=== PATIENT | male | born 1980 | race Caucasian/White ===

== ENCOUNTER 2020-06-25 12:46 | Inpatient (IN) | payer MEDICAID ==
[2020-06-25] VITALS (17 sets, daily range): BP systolic 68–115; BP diastolic 25–73
[~2020-06-25] VITALS: Ht 180.3 cm; Wt 45.2 kg
--- NOTE | ~2020-06-25 | OP ---
PATIENT NAME: LACIE ESTRADA MEDICAL RECORD: [id number] :82 LOCATION:.[facility] D.2311 ADMISSION DATE:06/25/20 SURGEON: JEFF RODRIGUEZ MD DATE OF OPERATION: 06/26/2020 PREOPERATIVE DIAGNOSES: 1. Acute abdomen with sepsis. 2. Septic shock. 3. Diabetic ketoacidosis. POSTOPERATIVE DIAGNOSES: 1. Acute abdomen with sepsis. 2. Septic shock. 3. Diabetic ketoacidosis. PROCEDURE: 1. Exploratory laparotomy. 2. Small bowel resection. SURGEON: Jeff Rodriguez MD REPORT OF PROCEDURE: The patient's abdomen was prepped and draped in sterile fashion. Midline incision was performed and we entered the abdominal cavity. Once in the abdomen, we were able to inspect the patient's small bowel. There was noted to be necrosis of the small bowel in its middle segment. This was about 2 feet in length. As we pulled up the remainder of the small bowel, we did not see any evidence of any further necrotic tissue and this all appeared to be viable and only mildly distended. We made windows in the mesentery and transected the small bowel proximally and distally on normal-appearing tissue. There was noted to be blood flow at these areas where the stapler was fired. We then came through the mesentery with sequential clamp and tie technique with 3-0 silk ties and we eventually sent this section of small bowel off for permanent specimen. A [id number] anastomosis was performed with a 55 blue load LEANNA stapler. We then closed the enterotomies with 30 blue load TA stapler. I oversewed all the staple lines with Lemberted 3-0 silks. The small bowel was placed back into the abdominal cavity. We then inspected the remainder of the abdomen and could see that the colon was normal with no signs of perforation or gangrene. The stomach appeared normal with no perforation or gangrene. There was proteinaceous fluid and ascitic fluid in the abdomen, but no sign of any purulent material or feculent material. We irrigated out the abdomen thoroughly with normal saline. The NG tube was noted to be in good position. The liver was normal with no signs of cirrhotic changes. At this point, we closed the fascia in the midline with a running #1 loop PDS times 2 and then closed the skin with shankar. COMPLICATIONS: None. CONDITION: Critical. ANESTHESIA: General endotracheal. BLOOD LOSS: Minimal. TRANSINT:[id number] Voice Confirmation ID: [id number] DOCUMENT ID: [id number] OPERATIVE REPORT [id number] LACIE ESTRADA CHRISTIAN MD CC: [id number] DICTATION DATE: 06/26/20 1231 SENIOR FORMULATION SCIENTIST: 06/26/202046 ADM IN [facility] [address] [place] [address]
--- NOTE | ~2020-06-25 | EEG ---
PATIENT:LACIE ESTRADA MEDICAL RECORD: [id number] DATE OF : 82 LOCATION:D.231 D.ICU ADMISSION DATE: 06/25/20 REFERRING PHYSICIAN: INTERPRETING PHYSICIAN: HIEU LAZAR MD DATE OF SERVICE: 07/03/2020 DATE OF EE07/03/2020 Room number is 2311 ORDERING PHYSICIAN: Dr. Lazar. CASE HISTORY: A 40-year-old male admitted after overdose with core temperature of 80 with respiratory failure, intubated, not assisting vent and unresponsive off sedation. PROCEDURE: EEG done with the patient off sedation using the standard 10-20 international electrode system, 16 channel was used with 17th as EKG. Photic stimulation done as activation procedure. DESCRIPTION OF PROCEDURE: EEG opens with the patient unresponsive on vent with record displaying diffuse background slowing in the theta and delta range with depressed amplitudes diffusely. Best brief background organization is in the 5-6 Hz range with most of record characterized by slower theta and delta slowing diffusely symmetrically. No epileptiform changes were seen. Photic stimulation did not yield a photoparoxysmal response. IMPRESSION: Markedly abnormal EEG with diffuse background slowing consistent with encephalopathy, consistent with diagnosis of anoxic brain injury. PROGNOSIS: Grim for recovery. TRANSINT:[id number] Voice Confirmation ID: [id number] DOCUMENT ID: [id number] HIEU LAZAR MD CC: [id number] DICTATION DATE: 07/03/20858 RECRUITMENT COORDINATOR: 07/03/20 09 ADM IN [facility] [address] [place] [address]
--- NOTE | 2020-06-25 14:12 | NUR ---
URINE COLLECTED AND SENT TO LAB VIA TUBE SYSTEM.
[2020-06-25 14:16] LABS: BILIRUBIN NEGATIVE (NEGATIVE); GLUCOSE 1000 mg/dL (NEGATIVE); KETONE MODERATE mg/dL (NEGATIVE); NITRITE NEGATIVE (NEGATIVE); UROBILINOGEN NORMAL (NORMAL)
[2020-06-25 14:17] LABS: AMORPHOUS SEDIMENT >1+ /lpf (NONE SEEN); BACTERIA FEW /hpf (NEGATIVE); RED CELLS - URINE 0-5 /hpf (0-5); WHITE CELLS - URINE 0-5 /hpf (NEGATIVE)
[2020-06-25 14:18] LABS: UDS - AMPHET NEGATIVE QUAL (NEGATIVE); UDS - BARB NEGATIVE QUAL (NEGATIVE); UDS - BENZO NEGATIVE QUAL (NEGATIVE); UDS - COCAINE NEGATIVE QUAL (NEGATIVE); UDS - OPIATE NEGATIVE QUAL (NEGATIVE); UDS - PCP NEGATIVE QUAL (NEGATIVE); UDS - THC NEGATIVE QUAL (NEGATIVE)
[2020-06-25 14:21] LABS: BASOPHILS 0.1 % (0-2); EOSINOPHILS 0.1 % (0-7); HEMATOCRIT 38.4 % (42.0-54.0); HEMOGLOBIN 11.6 g/dL (13.5-17.5); IMMATURE GRANULOCYTES 0.9 % (0-5); LYMPHOCYTES 10.8 % (15-50); MCH 30.2 pg (26.0-34.0); MCHC 30.2 g/dL (31.0-37.0); MEAN PLATELET VOLUME 10.3 fL (7.4-10.4); MONOCYTES 0.6 % (2-11); NEUTROPHILS 87.5 % (40-80); RBC 3.84 10x6/uL (4.20-6.10); WBC 19.4 10x3/uL (4.8-10.8)
[2020-06-25 14:23] LABS: PLATELET COUNT 260 10x3/uL (130-400)
[2020-06-25 14:45] LABS: ACETAMINOPHEN 4.7 ug/mL (10.0-30.0); ALBUMIN 2.5 g/dL (3.4-5.0); ALKALINE PHOSPHATASE 141 U/L (30-120); ALT (SGPT) 33 U/L (10-68); BILIRUBIN - TOTAL 0.51 mg/dL (0.2-1.3); CHLORIDE - SERUM 91 mmol/L (98-107); CKMB 1.2 U/L (0.0-3.6); CREATININE - SERUM 3.6 mg/dL (0.6-1.3); POTASSIUM - SERUM 4.3 mmol/L (3.5-5.1); PROTEIN - SERUM 5.1 g/dL (6.4-8.2); SODIUM 133 mmol/L (136-145); TROPONIN-I < 0.017 ng/mL (0.000-0.060); UREA NITROGEN 47 mg/dL (7-18); eGFR NON AFRICAN AMERICAN 20 mL/min (90-120)
[2020-06-25 14:59] LABS: CALC OSMOLALITY 357 mosm/kg (275-300); CREATINE KINASE 112 UL (21-232)
--- NOTE | 2020-06-25 15:01 | NUR ---
PER DR DOWNEN START INSULIN DRIP AT 10ML/HR INSTEAD OF USING FORMULA ON FLOWSHEET. AND RECHECK SUGAR HOURLY.
[2020-06-25 15:05] LABS: CALCIUM 6.9 mg/dL (8.5-10.1); GLUCOSE 1546 mg/dL (74-106)
[2020-06-25 15:06] LABS: CARBON DIOXIDE 6.9 mmol/L (21.0-32.0)
--- NOTE | 2020-06-25 15:40 | NUR ---
PER DR. ESPINAL, DO NOT CALL CODE SEPSIS.
--- NOTE | 2020-06-25 16:00 | NUR ---
CALLED LAB TO NOTIFY THEM OF STAT GLUCOSE DRAW.
--- NOTE | 2020-06-25 16:01 | NUR ---
FINGERSTICK GLUCOSE READING "HI" STAT ORDER PLACED FOR LAB GLUCOSE.
[2020-06-25 17:16] LABS: CALCIUM 7.4 mg/dL (8.5-10.1); CREATININE - SERUM 3.2 mg/dL (0.6-1.3); MAGNESIUM - SERUM 3.1 mg/dL (1.8-2.4)
[2020-06-25 17:17] LABS: ANION GAP 33.2 mmol/L (8-16); POTASSIUM - SERUM 3.2 mmol/L (3.5-5.1)
--- NOTE | 2020-06-25 18:52 | NUR ---
PER RIK DE LA FUENTE APN, INCREASE INSULIN DRIP TO 15U/HR FOR THE BS OF 1069.
--- NOTE | 2020-06-25 19:30 | NUR ---
BS: READING HIGH, ROSS Cardenas APN PAGED ABOUT KCL 2.9 AND BS FROM LAB OF 853, [place] NOTED.
[2020-06-25 19:34] LABS: CALCIUM 7.5 mg/dL (8.5-10.1); CREATININE - SERUM 3.2 mg/dL (0.6-1.3)
[2020-06-25 19:40] LABS: ANION GAP 25.4 mmol/L (8-16); CARBON DIOXIDE 19.5 mmol/L (21.0-32.0); POTASSIUM - SERUM 2.9 mmol/L (3.5-5.1)
--- NOTE | 2020-06-25 21:40 | NUR ---
ROSS Cardenas AT THE BEDSIDE INFORMED ABOUT PATIENTS HEART RATE OF 150 AND RESP RATE OF 37.
--- NOTE | 2020-06-25 22:30 | NUR ---
DR. MEHTA INFORMED ABOUT PATIENT DECLINE IN HEALTH AND ASKED TO EXAM THE PATIENT AND INFORMED OF ELEVATED HEART RATE OF 150 AND RESP RATE 40, ABG, NS BOLUS AND LEVOPHED ORDERED.
[2020-06-25 23:33] LABS: ANION GAP 21.6 mmol/L (8-16); CALCIUM 7.7 mg/dL (8.5-10.1); CARBON DIOXIDE 21.1 mmol/L (21.0-32.0); CREATININE - SERUM 3.5 mg/dL (0.6-1.3)
[2020-06-25 23:35] LABS: POTASSIUM - SERUM 2.7 mmol/L (3.5-5.1)
[2020-06-26] VITALS (34 sets, daily range): BP systolic 64–138; BP diastolic 32–86; BMI 13.9
--- NOTE | 2020-06-26 02:30 | NUR ---
ROSS Cardenas AT THE BEDSIDE BLADDER SCANNER COMPLETE NO URINE NOTED, CT OF HEAD AND ABD ORDERED, VASOPRESSIN ORDERED DUE TO CONT HYPOTENSION.
[2020-06-26 02:48] LABS: CALCIUM 7.8 mg/dL (8.5-10.1); CARBON DIOXIDE 21.1 mmol/L (21.0-32.0); CREATININE - SERUM 3.5 mg/dL (0.6-1.3)
[2020-06-26 02:50] LABS: ANION GAP 21.6 mmol/L (8-16); POTASSIUM - SERUM 3.7 mmol/L (3.5-5.1)
--- NOTE | 2020-06-26 04:30 | NUR ---
OLD STEEL REMOVED AND NEW ONE PLACED, PER MD REQUEST, NO URINE OUTPUT NOTED AT THIS TIME.
--- NOTE | 2020-06-26 07:30 | NUR ---
RECEIVED PT INTO CARE AT THIS TIME. UNABLE TO GET BP AT THIS TIME. HEARTRATE IS 155, PT WORKING HARD TO BREATH. VASOPRESSIN RUNNING AT 0.04U/MIN. NOREPINEPHRINE RUNNING AT 10 MCG/MIN AT THIS TIME. PAGE OUT TO DR. BERGER WHOM IS ACCOUNTS PAYABLE SUPERVISOR FOR OVIDIO.
--- NOTE | 2020-06-26 07:40 | NUR ---
UPDATED DR BERGER OF EUGENIA ORDERS AND VITALS OF BP 64/42, HR 155, RESP RATE OF 42. MOST RECENT LABS COMMUNICATED TO DR BERGER. THIS NURSE COMMUNICATES CONCERN OF PT CONDITION AT THIS TIME. NEW ORDERS RECEIVED 1/2NS 500ML BOLUS, THEN START 1/2 NS @150CC/HR AND REDRAW ABG'S. DR BERGER STATES HE WILL BE IN SOON TO SEE PT.
--- NOTE | 2020-06-26 08:00 | NUR ---
BLADDER SCANNER SHOWS NO URINE IN BLADDER AT THIS TIME.
--- NOTE | 2020-06-26 08:31 | NUR ---
DR RODRIGUEZ AT BEDSIDE TO EVAL PT. STATES HE WILL BE TAKING PT TO SURGERY SOMETIME SOON.
--- NOTE | 2020-06-26 09:00 | NUR ---
DR BERGER IN ED AT THIS TIME TO SEE PT.
--- NOTE | 2020-06-26 09:15 | NUR ---
ATTEMPTING TO LOCATE FAMILY TO NOTIFY REGARDING PATIENTS CONDITION. [facility]TA[facility]ED [facility] PATIENT WAS PICKED UP, GIVEN THE NAME OF HENRRY FREED AT [phone]. SHE IS A "FRIEND" AND SHE WILL ATTEMPT TO GET AHOLD OF FAMILY, HOWEVER DENIES KNOWING ANY FAMILY.
--- NOTE | 2020-06-26 09:40 | NUR ---
ANESTHESIA AT BEDSIDE TO INTUBATE AT THIS TIME.
--- NOTE | 2020-06-26 10:27 | NUR ---
SURGERY TOOK PATIENT TO OR AT THIS TIME.
--- NOTE | 2020-06-26 10:49 | NUR ---
Located some family, will contact patients father Marquez Cox at [phone]. Unable to reach Marquez. Will try again later
--- NOTE | 2020-06-26 10:53 | NUR ---
Reached patients uncle, Tiburcio Cox and he states he will reach immediate family and notify them to call hospital.
--- NOTE | 2020-06-26 11:37 | NUR ---
SPOKE WITH ADDY ESTRADA, SHE STATES SHE WILL CONTACT HER AND THEY WILL GET HERE [facility]. I EXPLAINED HE IS IN CRITICAL CONDITION AND THEY NEED TO COME TO HOSPITAL. SHE STATED HIS ONLY MEDICAL PROBLEMS HE HAS IS DM AND DRUG ABUSE HER PHONE NUMBER IS [phone]
--- NOTE | 2020-06-26 12:09 | NUR ---
SPOKE WITH PATIENTS MOTHER, NEMO DE LA VEGA AND SHE WAS INFORMED OF PATIENTS CONDITION. HER NUBER IS [phone]
[2020-06-26 15:28] LABS: BASOPHILS 0 % (0-2); EOSINOPHILS 0.3 % (0-7); HEMATOCRIT 33.3 % (42.0-54.0); HEMOGLOBIN 11.1 g/dL (13.5-17.5); IMMATURE GRANULOCYTES 1.4 % (0-5); MCHC 33.3 g/dL (31.0-37.0); MEAN PLATELET VOLUME 9.7 fL (7.4-10.4); MONOCYTES 3.1 % (2-11); NEUTROPHILS 79.2 % (40-80); RBC 3.58 10x6/uL (4.20-6.10); RDW 14.6 % (11.5-14.5)
[2020-06-26 15:34] LABS: PLATELET COUNT 155 10x3/uL (130-400)
[2020-06-26 15:35] LABS: WBC 6.5 10x3/uL (4.8-10.8)
[2020-06-26 16:05] LABS: CARBON DIOXIDE 21.8 mmol/L (21.0-32.0); CHLORIDE - SERUM 115 mmol/L (98-107); CHOL - HDL RATIO 0.9 ratio (2.3-4.9); CHOLESTEROL, TOTAL 52 mg/dL (0-200); CREATININE - SERUM 3.6 mg/dL (0.6-1.3); HDL CHOLESTEROL 59 mg/dL (32-96); PHOSPHOROUS 2.2 mg/dL (2.5-4.9); SODIUM 149 mmol/L (136-145); THYROID STIMULATING HORMONE 0.52 uIU/mL (0.36-3.74); TRIGLYCERIDE 42 mg/dL (30-200); eGFR NON AFRICAN AMERICAN 20 mL/min (90-120)
[2020-06-26 16:09] LABS: CALC OSMOLALITY 329 mosm/kg (275-300); GLUCOSE 386 mg/dL (74-106); MAGNESIUM - SERUM 1.4 mg/dL (1.8-2.4); POTASSIUM - SERUM 4.7 mmol/L (3.5-5.1); UREA NITROGEN 64 mg/dL (7-18)
[2020-06-26 16:10] LABS: C-REACTIVE PROTEIN 32.2 mg/dL (0.0-0.9); CALCIUM 5.9 mg/dL (8.5-10.1)
--- NOTE | 2020-06-26 17:26 | NUR ---
DR LYNCH ON UNIT. NEW ORDER RECEVED FOR VERSED JEFF.
--- NOTE | 2020-06-26 19:15 | NUR ---
REPORT RECEIVED. ASSESSMENT COMPLETE PER FLOW SHEET. REFER FOR FINDINGS. WILL CONTINUE TO MONITOR
[2020-06-26 19:16] LABS: ANION GAP 20.2 mmol/L (8-16); CARBON DIOXIDE 19.1 mmol/L (21.0-32.0); CREATININE - SERUM 4.1 mg/dL (0.6-1.3)
[2020-06-26 19:18] LABS: POTASSIUM - SERUM 4.3 mmol/L (3.5-5.1)
[2020-06-26 22:45] LABS: CARBON DIOXIDE 18.4 mmol/L (21.0-32.0); CREATININE - SERUM 4.1 mg/dL (0.6-1.3)
[2020-06-26 22:46] LABS: CALCIUM 5.8 mg/dL (8.5-10.1); POTASSIUM - SERUM 4.4 mmol/L (3.5-5.1)
[2020-06-27] VITALS (94 sets, daily range): BP systolic 75–129; BP diastolic 24–93
[2020-06-27 03:26] LABS: BASOPHILS 0.1 % (0-2); EOSINOPHILS 0.1 % (0-7); HEMATOCRIT 39.1 % (42.0-54.0); HEMOGLOBIN 12.7 g/dL (13.5-17.5); IMMATURE GRANULOCYTES 10.6 % (0-5); LYMPHOCYTES 11.1 % (15-50); MCH 30.2 pg (26.0-34.0); MCHC 32.5 g/dL (31.0-37.0); MCV 92.9 fL (80.0-100.0); MEAN PLATELET VOLUME 10.5 fL (7.4-10.4); MONOCYTES 0.4 % (2-11); NEUTROPHILS 77.7 % (40-80); PLATELET COUNT 114 10x3/uL (130-400); RBC 4.21 10x6/uL (4.20-6.10); RDW 14.2 % (11.5-14.5); WBC 18.3 10x3/uL (4.8-10.8)
[2020-06-27 03:37] LABS: MAGNESIUM - SERUM 1.4 mg/dL (1.8-2.4); PHOSPHOROUS 2.8 mg/dL (2.5-4.9)
[2020-06-27 03:38] LABS: ANION GAP 13.1 mmol/L (8-16)
[2020-06-27 03:39] LABS: CALCIUM 5.9 mg/dL (8.5-10.1); POTASSIUM - SERUM 5.1 mmol/L (3.5-5.1)
--- NOTE | 2020-06-27 08:12 | NUR ---
070 REPORT RECIEVED AND CARE ASSUMED OF PATIENT SEE LOW SHEET FOR SHIFT ASSESMENT FINDINGS..
[2020-06-27 09:12] LABS: HEPATITIS C ANTIBODY <0.1 (0.0-0.9)
[2020-06-27 11:00] LABS: CREATINE KINASE 13678 UL (21-232)
--- NOTE | 2020-06-27 17:34 | NUR ---
1730 BS DONE AT THIS TIME.. RESULT 23 D50W GIVEN..
--- NOTE | 2020-06-27 17:56 | NUR ---
1755 LAB HERE AND BLOOD DRAWN FROM [facility] FOR BLOOD CULTURES URINE OBTAINED FOR URINE CULTURE.. BS REPEATED 30 IN AFTER D50W GIVEN AND RESULTS ARE 146...
--- NOTE | 2020-06-27 20:27 | NUR ---
ANNE ANGULO PTS AUNT CALLED GAVE PASSSCODE UPDATE GIVEN. PT STATED SHE WOULD TRY TO GET PTS DAD'S CONTACT INFORMATION. INFORMED PT WAS CRITICAL. QUESTIONS ANSWERED
--- NOTE | 2020-06-27 20:45 | NUR ---
PTS AUNT RETURNED CALL GAVE PASSCODE AND GAVE PTS FATHERS PHONE NUMBER
[2020-06-28] VITALS (84 sets, daily range): BP systolic 91–149; BP diastolic 51–95
[2020-06-28 06:07] LABS: ANION GAP 18.7 mmol/L (8-16); CARBON DIOXIDE 18.9 mmol/L (21.0-32.0); MAGNESIUM - SERUM 1.6 mg/dL (1.8-2.4)
[2020-06-28 06:10] LABS: CREATININE - SERUM 5.4 mg/dL (0.6-1.3); PHOSPHOROUS 4.6 mg/dL (2.5-4.9)
[2020-06-28 06:11] LABS: CALCIUM 5.3 mg/dL (8.5-10.1); POTASSIUM - SERUM 5.6 mmol/L (3.5-5.1)
[2020-06-28 06:15] LABS: HEMOGLOBIN 8.7 g/dL (13.5-17.5); MCH 29.3 pg (26.0-34.0); MCHC 31.1 g/dL (31.0-37.0); MCV 94.3 fL (80.0-100.0); MEAN PLATELET VOLUME 10.9 fL (7.4-10.4); PLATELET COUNT 55 10x3/uL (130-400); RBC 2.97 10x6/uL (4.20-6.10); RDW 14.4 % (11.5-14.5); WBC 15.3 10x3/uL (4.8-10.8)
[2020-06-28 06:45] LABS: LYMPHOCYTES 20 % (15-50); MONOCYTES 1 % (2-11); NEUTROPHILS 75 % (40-80); PLATELET ESTIMATE DECREASED; POIKILOCYTOSIS OCC
[2020-06-28 06:46] LABS: BURR CELLS OCC
--- NOTE | 2020-06-28 09:44 | NUR ---
0700 REPORT RECIEVED AND CARE ASSUMED OF PATIENT.. SEE FLOW SHEET FOR FOR SHIFT ASSEMENT FINDINGS 0945LEANNE RENAL IN TO SEE PATIENT.
--- NOTE | 2020-06-28 10:43 | NUR ---
0947 DR BERGER IN TO SEE PATIENT
--- NOTE | 2020-06-28 15:58 | NUR ---
1600 EMERY DRIP AND LEVOPHED HAVE BOTH BEEN WEANED OFF OF PATIENT THRU OUT THE AFTERNOON.. BP REMAINS 100 SYSTOLIC .. VASOPRESSIN CONTINUES AT 0.04 ...
--- NOTE | 2020-06-28 19:10 | NUR ---
WHILE DAYSHIFT AND COMMUNICATION CLERK NURSE DOING BEDSIDE REPORT. PT RESP RATE INCREASED SHALLOW FENTANYL INCREASED WILL MONITOR
[2020-06-29] VITALS (60 sets, daily range): BP systolic 88–129; BP diastolic 62–95
--- NOTE | 2020-06-29 05:20 | NUR ---
LATE ENTRY: INSULIN GTT STOPPED AT 2014 POTASSIUM GTT STOPPED AT 199
[2020-06-29 08:02] LABS: ALBUMIN 1.4 g/dL (3.4-5.0); ALKALINE PHOSPHATASE 255 U/L (30-120); ALT (SGPT) 174 U/L (10-68); BILIRUBIN - DIRECT 1.15 mg/dL (0.00-0.30); BILIRUBIN - INDIRECT 0.48 mg/dL (0.00-1.00); BILIRUBIN - TOTAL 1.63 mg/dL (0.2-1.3); CARBON DIOXIDE 17.5 mmol/L (21.0-32.0); CHLORIDE - SERUM 101 mmol/L (98-107); CREATININE - SERUM 6.6 mg/dL (0.6-1.3); PROTEIN - SERUM 4.9 g/dL (6.4-8.2); SODIUM 130 mmol/L (136-145); eGFR NON AFRICAN AMERICAN 10 mL/min (90-120)
[2020-06-29 08:19] LABS: HEMATOCRIT 20.1 % (42.0-54.0); MCH 30.1 pg (26.0-34.0); MCHC 32.3 g/dL (31.0-37.0); MCV 93.1 fL (80.0-100.0); RDW 14.3 % (11.5-14.5)
[2020-06-29 08:23] LABS: WBC 11.1 10x3/uL (4.8-10.8)
[2020-06-29 08:24] LABS: HEMOGLOBIN 6.5 g/dL (13.5-17.5); RBC 2.16 10x6/uL (4.20-6.10)
[2020-06-29 08:25] LABS: PLATELET COUNT 41 10x3/uL (130-400)
[2020-06-29 08:40] LABS: CALC OSMOLALITY 301 mosm/kg (275-300); GLUCOSE 154 mg/dL (74-106)
[2020-06-29 08:41] LABS: CALCIUM 5.8 mg/dL (8.5-10.1); POTASSIUM - SERUM 6.9 mmol/L (3.5-5.1); UREA NITROGEN 120 mg/dL (7-18)
[2020-06-29 09:08] LABS: CKMB 220.4 U/L (0.0-3.6); CREATINE KINASE 55320 UL (21-232)
--- NOTE | 2020-06-29 12:31 | NUR ---
INCREASED RR TO 20
--- NOTE | 2020-06-29 12:57 | NUR ---
Nutrition follow-up: Intubated; NPO Labs reviewed Pt very unstable at this time RDN received order for TPN; however, pt too unstable with elevated LFT's to start TPN at this time. Pro RN spoke with Dr. Dale who agreed. Wt: 99# Will continue to monitor pts progress; will start TPN as soon as medically feasible. RDN following.
[2020-06-29 12:59] LABS: ANISOCYTOSIS OCC; EOSINOPHILS 1 % (0-7); LYMPHOCYTES 19 % (15-50); MONOCYTES 12 % (2-11); NEUTROPHILS 66 % (40-80); PLATELET ESTIMATE DECREASED
[2020-06-29 13:00] LABS: CRENATED CELLS OCC
--- NOTE | 2020-06-29 19:48 | NUR ---
paged agronomy instructor nurse for dialysis orders
--- NOTE | 2020-06-29 19:54 | NUR ---
spoke with family. update given
--- NOTE | 2020-06-29 20:58 | NUR ---
paged this time for nephrology. about dialysis orders.
[2020-06-29 21:29] LABS: BASOPHILS 0.1 % (0-2); EOSINOPHILS 0.9 % (0-7); IMMATURE GRANULOCYTES 1.3 % (0-5); LYMPHOCYTES 19.2 % (15-50); MCH 29.1 pg (26.0-34.0); MEAN PLATELET VOLUME 10.3 fL (7.4-10.4); MONOCYTES 13.5 % (2-11); RDW 15.8 % (11.5-14.5)
[2020-06-29 21:35] LABS: HEMATOCRIT 31.2 % (42.0-54.0); HEMOGLOBIN 10.3 g/dL (13.5-17.5); MCV 88.1 fL (80.0-100.0); RBC 3.54 10x6/uL (4.20-6.10); WBC 8.2 10x3/uL (4.8-10.8)
[2020-06-29 21:38] LABS: PLATELET COUNT 22 10x3/uL (130-400)
[2020-06-29 21:42] LABS: CARBON DIOXIDE 18.4 mmol/L (21.0-32.0)
[2020-06-29 21:49] LABS: ANION GAP 17.8 mmol/L (8-16)
[2020-06-29 21:50] LABS: POTASSIUM - SERUM 6.2 mmol/L (3.5-5.1)
[2020-06-29 21:51] LABS: CALCIUM 5.7 mg/dL (8.5-10.1)
--- NOTE | 2020-06-29 22:03 | NUR ---
SPOKE WITH DR DIAL. NEW ORDRES. NO DIALYSIS TODAY. WILL DO IN AM
[2020-06-30] VITALS (50 sets, daily range): BP systolic 92–127; BP diastolic 37–91; Ht 180.3 cm; Wt 45.2 kg
--- NOTE | 2020-06-30 00:31 | NUR ---
per dr kam verbal order.. labs are to be scanned in at 3 am. spoke with lab about this.
--- NOTE | 2020-06-30 01:42 | NUR ---
patient had bm.
[2020-06-30 02:57] LABS: BASOPHILS 0.5 % (0-2); EOSINOPHILS 0.9 % (0-7); HEMATOCRIT 32.6 % (42.0-54.0); HEMOGLOBIN 10.8 g/dL (13.5-17.5); IMMATURE GRANULOCYTES 1.2 % (0-5); LYMPHOCYTES 23.2 % (15-50); MCH 29.4 pg (26.0-34.0); MCHC 33.1 g/dL (31.0-37.0); MCV 88.8 fL (80.0-100.0); MEAN PLATELET VOLUME 11.5 fL (7.4-10.4); MONOCYTES 14.5 % (2-11); NEUTROPHILS 59.7 % (40-80); RBC 3.67 10x6/uL (4.20-6.10); RDW 16.1 % (11.5-14.5); WBC 8.8 10x3/uL (4.8-10.8)
[2020-06-30 03:02] LABS: PLATELET COUNT 26 10x3/uL (130-400)
[2020-06-30 03:16] LABS: ANION GAP 23.2 mmol/L (8-16); APTT 32.6 SECONDS (22.8-39.4); CARBON DIOXIDE 16.4 mmol/L (21.0-32.0); CREATININE - SERUM 7.2 mg/dL (0.6-1.3); INR 1.17 (0.85-1.17); MAGNESIUM - SERUM 1.8 mg/dL (1.8-2.4); PHOSPHOROUS 5.4 mg/dL (2.5-4.9); POTASSIUM - SERUM 5.6 mmol/L (3.5-5.1); PROTIME 14.8 SECONDS (11.6-15.0)
[2020-06-30 03:26] LABS: D-DIMER-QUANTITATIVE 16.93 ug/mLFEU (0.20-0.54)
--- NOTE | 2020-06-30 03:39 | NUR ---
radha hernandez apn for criticals and cold foot
--- NOTE | 2020-06-30 03:45 | NUR ---
spoke with david. no new orders.
--- NOTE | 2020-06-30 05:56 | NUR ---
GLUCOSE READ TOO HIGH CRITICL LAB BLOOD SUGAR
--- NOTE | 2020-06-30 06:02 | NUR ---
ULTRASOUND CALLED. AWARE OF PROCEDURE AND URGENCY.
[2020-06-30 06:38] LABS: ALBUMIN 1.4 g/dL (3.4-5.0); GLUCOSE 284 mg/dL (74-106)
[2020-06-30 07:44] LABS: CREATINE KINASE 49713 UL (21-232)
--- NOTE | 2020-06-30 09:32 | NUR ---
Nutrition follow-up: Chart reviewed Intubated; sedation off NPO; possible dialysis today Pt remains very unstable RDN will continue to monitor
--- NOTE | 2020-06-30 11:02 | NUR ---
0700 REPORT RECIEVED AND CARE ASSUMED OF THE PATIENT.. SEE FLOW SHEET FOR SHIFT ASSESMENT FINDINGS..DOPPLER US OF LOWER EXTREMITIES IN PROGRESS. CONTINUES ON LEVOPHED FOR BP 0800 DIETARY IN TO SEE PATIENT.. 0900 DR RODRIGUEZ IN TO SEE PATIENT AND UPDATE GIVEN DR REMOVED THE DRESSING ON THE ABDOMINAL INCISION.. LEFT THE INCISION OPEN TO AIR.. DR TURNED THE SEDATION OFF AT THIS TIME TO CHECK FOR PATIENT RESPONSIVENESS.. PT REMAINS WITHOUT SEDATION INFUSION PER DR RODRIGUEZ TO ASSES RESPONSIVENESS.. 1000 MOTHER CALLED UNIT UPDATE GIVEN 1030 DIALYSIS AT BEDSIDE SETTING UP FOR TX.. LAB IN AND DIALYSIS HANS FORM THEIR LINE.. BS OBTAINED AT THIS TIME ALSO .. PATIENT CONITNUES OFF SEDATION AND THERE IS NO RESPONSE TO STIMULI.. LEVOPHED REMAINS INFUSING..
--- NOTE | 2020-06-30 15:08 | NUR ---
1230 DILYSIS COMPLETE PT TOLERATED WELL 1400 LEVOPHED DOSE TO 0.5 MCG 1/2 DOS 1500 BP REMAINS STABLE LEVO OFF AT THIS TIME..
--- NOTE | 2020-06-30 18:35 | NUR ---
1600 ROSS MEDEROS APN IN TO SEE PATIENT FOR PRIMARY .. KEEP MAP OF BP GREATER THAN [address] TERRY IN TO SEE PATIENT.. UPDATE IS GIVEN.. 1800 TEMP HAS INCREASED TO 99.9 PER STEEL..UP FROM 97.5 EARLIER IN SHIFT.. BLANKETS REMOVED
--- NOTE | 2020-06-30 21:25 | NUR ---
REPORT RECEIVED FROM OFFGOING NURSE. PT IS LYING BED AND SEDATION OFF. ASSESSMENT COMPLETE
--- NOTE | 2020-06-30 22:07 | NUR ---
ABDOMINAL BREATHING NOTED. RR HR BP INCREASED. FENTANYL RESTARTED FOR COMFORT.
[2020-06-30 23:35] LABS: HEMATOCRIT 31.1 % (42.0-54.0); HEMOGLOBIN 10.6 g/dL (13.5-17.5); MCH 29.9 pg (26.0-34.0); MCHC 34.1 g/dL (31.0-37.0); MCV 87.6 fL (80.0-100.0); NEUTROPHILS 72.7 % (40-80); RBC 3.55 10x6/uL (4.20-6.10); RDW 16.3 % (11.5-14.5); WBC 9.4 10x3/uL (4.8-10.8)
[2020-06-30 23:38] LABS: PLATELET COUNT 42 10x3/uL (130-400)
--- NOTE | 2020-06-30 23:45 | NUR ---
oral temp taken due to patient feeling hot. 97.9 versed started at 1 mg. patient using abd muscles to breathe. tachycardic. hypotensive. blisters noted on chest and face. spoke with dr verdugo about this new finding. blisters on r leg that is purple and no pedal dorsalis pulse found. marked around purple skin.
[2020-07-01] VITALS (21 sets, daily range): BP systolic 89–117; BP diastolic 48–71
[2020-07-01 04:15] LABS: BASOPHILS 0.6 % (0-2); EOSINOPHILS 0.3 % (0-7); HEMOGLOBIN 10.1 g/dL (13.5-17.5); IMMATURE GRANULOCYTES 3.8 % (0-5); LYMPHOCYTES 18.7 % (15-50); MCH 29.1 pg (26.0-34.0); MCHC 33.7 g/dL (31.0-37.0); MCV 86.5 fL (80.0-100.0); MONOCYTES 14.7 % (2-11); NEUTROPHILS 61.9 % (40-80); RBC 3.47 10x6/uL (4.20-6.10); RDW 16.2 % (11.5-14.5); WBC 9.4 10x3/uL (4.8-10.8)
[2020-07-01 04:20] LABS: ANION GAP 21.7 mmol/L (8-16); CARBON DIOXIDE 20.2 mmol/L (21.0-32.0); CREATININE - SERUM 6.2 mg/dL (0.6-1.3); POTASSIUM - SERUM 5.9 mmol/L (3.5-5.1)
[2020-07-01 04:42] LABS: CALCIUM 6.7 mg/dL (8.5-10.1); PLATELET COUNT 44 10x3/uL (130-400)
[2020-07-01 06:23] LABS: CREATINE KINASE 41962 UL (21-232)
[2020-07-01 06:29] LABS: CKMB 165.9 U/L (0.0-3.6)
--- NOTE | 2020-07-01 09:15 | NUR ---
DR. DUPREE IN TO SEE PATIENT.
--- NOTE | 2020-07-01 09:26 | NUR ---
DR. RODRIGUEZ IN TO SEE PATIENT.
--- NOTE | 2020-07-01 13:18 | NUR ---
Nutrition follow-up: Pt intubated; no sedation NPO Labs reviewed Wt: 99# Spoke with RN re: nutrition support. RN will relay messaage to physician. RDN following.
--- NOTE | 2020-07-01 20:29 | NUR ---
ROSS GARG AT BEDSIDE TALKING TO FAMILY.
[2020-07-02] VITALS (22 sets, daily range): BP systolic 104–147; BP diastolic 56–88
[2020-07-02 05:50] LABS: HEMATOCRIT 30.6 % (42.0-54.0); HEMOGLOBIN 10.4 g/dL (13.5-17.5); MCH 29.5 pg (26.0-34.0); MCV 86.7 fL (80.0-100.0); MEAN PLATELET VOLUME 12.2 fL (7.4-10.4); NEUTROPHILS 83.5 % (40-80); RBC 3.53 10x6/uL (4.20-6.10); RDW 16.6 % (11.5-14.5)
[2020-07-02 05:51] LABS: CARBON DIOXIDE 25.1 mmol/L (21.0-32.0); CREATININE - SERUM 4.7 mg/dL (0.6-1.3)
[2020-07-02 05:52] LABS: PLATELET COUNT 84 10x3/uL (130-400); WBC 17.6 10x3/uL (4.8-10.8)
[2020-07-02 05:55] LABS: ANION GAP 14.8 mmol/L (8-16); CALCIUM 6.9 mg/dL (8.5-10.1); PHOSPHOROUS 3.7 mg/dL (2.5-4.9); POTASSIUM - SERUM 3.9 mmol/L (3.5-5.1)
--- NOTE | 2020-07-02 09:24 | NUR ---
Nutrition follow-up: Dr. Darnell ordered TPN to begin today. Chart reviewed; Labs reviewed; most WNL Pt remains intubated. Wt: 99# RDN ordered TPN @ 40 ml/hr with 20% 25o ml intralipids q 72 hours. Maintenance labs ordered RDN following.
[2020-07-02 14:10] LABS: HEPARIN INDUCED PLATELET AB 0.083 OD (0.000-0.400)
--- NOTE | 2020-07-02 19:38 | NUR ---
AWAITING CALL BACK FROM ROSS GARG DUE TO PT NEEDING 16UNITS OF INSULIN AND BEING ON TPN.
--- NOTE | 2020-07-02 19:42 | NUR ---
ROSS MEDEROS CIVIL CAD DESIGNER OK TO GO AHEAD WITH INSULIN ORDER
[2020-07-03] VITALS (25 sets, daily range): BP systolic 109–164; BP diastolic 56–100
[2020-07-03 03:37] LABS: HEMATOCRIT 26.1 % (42.0-54.0); HEMOGLOBIN 8.9 g/dL (13.5-17.5); MCH 29.4 pg (26.0-34.0); MCHC 34.1 g/dL (31.0-37.0); MCV 86.1 fL (80.0-100.0); MEAN PLATELET VOLUME 11.8 fL (7.4-10.4); PLATELET COUNT 118 10x3/uL (130-400); RBC 3.03 10x6/uL (4.20-6.10); RDW 16.4 % (11.5-14.5); WBC 21.1 10x3/uL (4.8-10.8)
[2020-07-03 04:02] LABS: MAGNESIUM - SERUM 1.8 mg/dL (1.8-2.4); PHOSPHOROUS 3.2 mg/dL (2.5-4.9)
[2020-07-03 04:11] LABS: EOSINOPHILS 1 % (0-7); LYMPHOCYTES 6 % (15-50); NEUTROPHILS 82 % (40-80); PLATELET ESTIMATE DECREASED
[2020-07-03 04:18] LABS: CREATINE KINASE 11824 UL (21-232)
[2020-07-03 04:41] LABS: CKMB 54.3 U/L (0.0-3.6)
[2020-07-03 09:19] LABS: ANION GAP 10.4 mmol/L (8-16); CALCIUM 7.1 mg/dL (8.5-10.1); CARBON DIOXIDE 27.3 mmol/L (21.0-32.0); CREATININE - SERUM 4.2 mg/dL (0.6-1.3); POTASSIUM - SERUM 3.7 mmol/L (3.5-5.1)
--- NOTE | 2020-07-03 12:38 | NUR ---
Nutrition follow-up: Pt remains intubated, sedated TPN @ 40 ml/hr; intralipids 20% 250 ml q 72 hours Labs reviewed Will continue current TPN formula RDN following.
--- NOTE | 2020-07-03 23:14 | NUR ---
SEDATION WAS STARTED BACK ON PATIENT. NOT FOLLOWING COMMANDS. PERRL. BUT PT WAS THRASHING HEAD AND TRYING TO PULL UP ARMS. RESP AT 30.
[2020-07-04] VITALS (15 sets, daily range): BP systolic 123–148; BP diastolic 67–115
[2020-07-04 07:12] LABS: HEMATOCRIT 24.9 % (42.0-54.0); HEMOGLOBIN 8.2 g/dL (13.5-17.5); MCH 28.7 pg (26.0-34.0); MCHC 32.9 g/dL (31.0-37.0); MCV 87.1 fL (80.0-100.0); MEAN PLATELET VOLUME 11.6 fL (7.4-10.4); PLATELET COUNT 171 10x3/uL (130-400); RBC 2.86 10x6/uL (4.20-6.10); RDW 16.5 % (11.5-14.5); WBC 21.9 10x3/uL (4.8-10.8)
[2020-07-04 08:11] LABS: MAGNESIUM - SERUM 2.1 mg/dL (1.8-2.4)
[2020-07-04 09:07] LABS: LYMPHOCYTES 6 % (15-50); MONOCYTES 2 % (2-11); NEUTROPHILS 92 % (40-80); PLATELET ESTIMATE NORMAL
[2020-07-04 09:26] LABS: ALBUMIN 1.8 g/dL (3.4-5.0); ANION GAP 16.6 mmol/L (8-16); BILIRUBIN - TOTAL 0.76 mg/dL (0.2-1.3); CARBON DIOXIDE 21.5 mmol/L (21.0-32.0); PHOSPHOROUS 2.9 mg/dL (2.5-4.9); PROTEIN - SERUM 4.3 g/dL (6.4-8.2)
[2020-07-04 09:30] LABS: CREATININE - SERUM 5.3 mg/dL (0.6-1.3); POTASSIUM - SERUM 3.1 mmol/L (3.5-5.1)
--- NOTE | 2020-07-04 09:47 | NUR ---
Nutrition follow-up: Chart reviewed Labs reviewed; K 3.1 -> recommend K estephania Will continue current TPN formula RDN following.
--- NOTE | 2020-07-04 14:00 | NUR ---
0700 REPORT RECIEVED AND CARE ASSUMED OF PATIENT.. SEE FLOW SHEET FOR SHIFT ASSESMENT FINDINGS.. 0720 WARM BLANKET ADDED FOR TEMP OF 97.4 PER CRITICORE STEEL CATH.. NOTED DECORDICATE MOVEMENT OF LIMBS..RIGHT LOWER LEG IS WITH BLISTERS AND TOES ARE BLACK.. PIV X2 IN RIGHT ARM DCd AT THIS TIME... 0745 DR RODRIGUEZ IN TO SEE PATIENT UPDATE GIVEN.. 0900 STEP MOM CALLED AND UPDATE GIVEN... 0915 DR GUTIERREZ IN TO SEE PATIENT 1000 BS IS DONE.. BLOOD CULTURES DRAWN FROM NURSE PORT OF TRIALYSIS CATH.. 1030 LAB TEECH IN TO DRAW BLOOD CULTURES FROM PERIFERAL STICK.. 1030 DR RAY IN TO SEE PATIENT UPDATE IS GIVEN.. 1130 DR RAY ATTEMPT TO CALL FAMILT.. MESSAGE LEFT TO RETURN CALL.. 1220 DR MCKNIGHT IN TO SEE PATIENT SPOKE WITH DR RAY.. 1230 STEP MOM RETURNED CALL SPEAKING WITH DR RAY AND THEN DR MCKNIGHT ON THE PHONE.. 1330 PATIENT BIOLOGICAL MOTHER CALLED INTO UNIT STATING THAT SHE HAS SPOKEN WITH PTS FATHER AND SIBLINGS.. AND THEY WISH TO HAVE A TERMINAL EXTUBATION ..
--- NOTE | 2020-07-04 15:27 | NUR ---
1500 VERSED DIETARY AIDE INFUSION COMPLETE.. 1535 FENTANYLL DIETARY AIDE NEW SYRINGE
--- NOTE | 2020-07-04 18:32 | NUR ---
[address] HERE .. DR MCKNIGHT CALLED ORDERS FOR TERMINAL EXTUBATION RECIEVED.. MORPHINE AND ATIVAN GIOVEN PER ORDER AND FAMILY INFORMED OF THE EXTUBATION PROCESS. 1746 PATIENT EXTUBATED TO 2 L NC BY RT 2 MG ATIVAN GIVEN POST EXTUBATION.. 1800 ROOM 2200 OBTAINED ON THE FLOOR.. 1809 REPORT CALLED TO FLOOR AND PATIENT TRANSFERED... 1830 FAMILY CONCERNED ABOUT PT PERSONAL BELONGINGS.. ER CALLED 1840 FAMILY NOTIFIED OF BELONGINGS IN LOCK UP IN THE ER.. M-F 6-4 BLOCKER AND CUTTER CONTACT LENS
[2020-07-05 00:10] VITALS: BP 142/72
--- NOTE | 2020-07-05 04:40 | NUR ---
PT INCREASINGLY RESTLESS. MOVING ALL ARMS AND LEGS. GRUNTING AT TIMES. GAVE MORPHINE 4 MG IV PUSH FOR COMFORT. REPOSITIONED AND TURNED PT. EMPTIED STEEL. WILL REASSESS AND CONTINUE TO MONITOR.
[2020-07-05 09:49] VITALS: BP 127/74
--- NOTE | 2020-07-05 11:34 | NUR ---
PT RESTLESS WITH LABORED BREATHING. TRIALYSIS TO RIGHT JUGULAR, PATENT, LAB DRAWN PER ORDERS. FAMILY AT BEDSIDE. BED LOW, CALL LIGHT IN REACH. NO OTHER NEEDS AT THIS TIME.
[2020-07-05 12:23] LABS: BASOPHILS 0.1 % (0-2); EOSINOPHILS 0 % (0-7); HEMATOCRIT 28.2 % (42.0-54.0); HEMOGLOBIN 8.3 g/dL (13.5-17.5); IMMATURE GRANULOCYTES 2.2 % (0-5); MCH 28.8 pg (26.0-34.0); MCHC 29.4 g/dL (31.0-37.0); MCV 97.9 fL (80.0-100.0); MEAN PLATELET VOLUME 11.1 fL (7.4-10.4); MONOCYTES 3.8 % (2-11); NEUTROPHILS 90.9 % (40-80); PLATELET COUNT 298 10x3/uL (130-400); RBC 2.88 10x6/uL (4.20-6.10); WBC 33.9 10x3/uL (4.8-10.8)
[2020-07-05 12:38] LABS: ALBUMIN 1.9 g/dL (3.4-5.0); BILIRUBIN - TOTAL 1.22 mg/dL (0.2-1.3); CALCIUM 7.9 mg/dL (8.5-10.1); PROTEIN - SERUM 4.9 g/dL (6.4-8.2)
[2020-07-05 13:05] LABS: ANION GAP 39.5 mmol/L (8-16); CARBON DIOXIDE 3.5 mmol/L (21.0-32.0); CREATININE - SERUM 7.2 mg/dL (0.6-1.3)
[2020-07-05 17:21] VITALS: BP 100/46
[2020-07-05 20:00] VITALS: BP 83/33
--- NOTE | 2020-07-06 01:00 | NUR ---
2112 CALLED TO ROOM. PT HAS NO RESP AND NO PULSE. 2114 NOTIFIED CASEY VERNON, BUILD ENGINEER. 2115 NOTIFIED BRITANY JOLLY. TRANSFERRED CALL TO ER. [address] DR. MUHAMMAD PRONOUNCED TIME OF . 2319 NOTIFIED TOY. DONATION RULED OUT DUE TO SEPSIS. 2349 NOTIFIED ARGELIA BR[facility]ERS HOME. 29 PERFORMED POST MORTEM PREPARATION 99 HOME PICKED UP PT.
== END 2020-07-05 22:30 | DRG 853 ==
LOC: D.ER 12:46 → D.EDHOLD 14:16 → D.ICU 14:16 → D.MS 14:16 → D.ICU 06-26 12:53 → D.MS 07-04 18:17
PROVIDERS: Family Medicine; Family Medicine Adult Medicine; Internal Medicine; Internal Medicine Nephrology; Internal Medicine Pulmonary Disease; Surgery; ADMIT Family Medicine; ATTEND Family Medicine
PROC: 5A1955Z Respiratory Ventilation, Greater than 96 Consecutive Hours (ICD-10-PCS; 2020-06-26)
PROC: 0DB80ZZ Excision of Small Intestine, Open Approach (ICD-10-PCS; principal; 2020-06-26 14:00)
PROC: 0BH17EZ Insertion of Endotracheal Airway into Trachea, Via Natural or Artificial Opening (ICD-10-PCS; 2020-06-26 14:00)
DX: A41.9 Sepsis, unspecified organism (principal); E11.10 Type 2 diabetes mellitus with ketoacidosis without coma; G93.41 Metabolic encephalopathy; J96.01 Acute respiratory failure with hypoxia; R65.21 Severe sepsis with septic shock; J96.00 Acute respiratory failure, unspecified whether with hypoxia or hypercapnia; N17.0 Acute kidney failure with tubular necrosis; I50.21 Acute systolic (congestive) heart failure; E87.2 Acidosis; G93.1 Anoxic brain damage, not elsewhere classified; Z79.4 Long term (current) use of insulin; E11.649 Type 2 diabetes mellitus with hypoglycemia without coma; E87.5 Hyperkalemia; D64.9 Anemia, unspecified; D69.6 Thrombocytopenia, unspecified